=== PATIENT | female | born 1930 | race Two or more races ===

== ENCOUNTER → 2020-05-14 | Outpatient (CLI) | payer OTHER | END | disposition home or self-care (01) | LOC: RX STUDY 09:45 | PROVIDERS: ATTEND Internal Medicine Gastroenterology | DX: R13.19 Other dysphagia (principal); R10.13 Epigastric pain ==

== ENCOUNTER 2020-06-13 08:55 | Outpatient (CLI) | payer OTHER | END 2020-06-13 08:57 | disposition home or self-care (01) | LOC: TOM 08:55 | PROVIDERS: ATTEND Internal Medicine Gastroenterology | DX: K56.600 Partial intestinal obstruction, unspecified as to cause (principal); K63.5 Polyp of colon; R19.5 Other fecal abnormalities ==